=== PATIENT | male | born 1975 | race Caucasian/White ===

== ENCOUNTER 2019-01-08 18:21 | Emergency (ER) | payer OTHER ==
[~2019-01-08] VITALS: Ht 170.2 cm; Wt 145.2 kg
[~2019-01-08 18:21] MED LIST: ACET325 PO; AZIT500 PO; CETI10 PO; CODACE30 PO; CYCL10 PO; DIPH50 PO; FAMO20 PO; HYDACE10 PO; HYDACE5 PO; HYDPAM50 PO; IBUP200; IBUP200 PO; IBUP400 PO; IBUP800 PO; OXYACE5T PO; PRED10 PO; PRED20 PO
[2019-01-08] MEDS ORDERED: VENL150ER PO (19:24)
[2019-01-08 19:58] LABS: Source, Urine Clean Catch
[2019-01-08 20:03] LABS: BASOPHILS ABSOLUTE AUTO 0.03 K/mm3 (0.00-0.23); BASOPHILS PERCENT AUTO 0 % (0-2); EOSINOPHILS ABSOLUTE AUTO 0.16 K/mm3 (0.00-0.68); EOSINOPHILS PERCENT AUTO 2 % (0-6); Hematocrit 42.9 % (37.0-53.0); Hemoglobin 13.7 g/dL (13.5-17.5); IMMATURE GRAN ABSOLUTE AUTO 0.08 K/mm3 (0.00-0.10); IMMATURE GRAN PERCENT AUTO 1 % (0-1); LYMPHOCYTES ABSOLUTE AUTO 2.22 K/mm3 (0.84-5.20); LYMPHOCYTES PERCENT AUTO 31 % (21-46); MONOCYTES ABSOLUTE AUTO 0.58 K/mm3 (0.16-1.47); MONOCYTES PERCENT AUTO 8 % (4-13); Mean Corpuscular HGB 29.4 pg (26.0-34.0); Mean Corpuscular HGB Conc 31.9 g/dL (31.5-36.5); Mean Corpuscular Volume 92 fL (80-100); Mean Platelet Volume 11.3 fL (9.1-12.4); NEUTROPHILS ABSOLUTE AUTO 4.16 K/mm3 (1.96-9.15); NEUTROPHILS PERCENT AUTO 58 % (41-73); Platelet Count 267 K/mm3 (150-400); RDW Coefficient Variation 13.4 % (11.7-14.2); Red Blood Cell Count 4.66 M/mm3 (4.30-5.90); White Blood Cell Count 7.23 K/mm3 (4.00-11.30)
[2019-01-08 20:09] LABS: Appearance, Urine Hazy (Clear); Bilirubin, Urine Neg (Neg); Blood, Urine 5+ (Neg); Color, Urine Amber (P-Yellow); Glucose Qualitative, Urine Neg (Neg); Ketones, Urine 1+ (Neg); Leukocyte Esterase, Urine 1+ (Neg); Nitrite, Urine Neg (Neg); Protein, Urine 2+ (Neg); Specific Gravity, Urine 1.025 (1.003-1.022); Urobilinogen, Urine NORM (Normal)
[2019-01-08 20:23] LABS: Alanine Aminotransfer (ALT/SGP 51 U/L (12-78); Albumin, Blood 3.6 g/dL (3.4-5.0); Albumin/Globulin Ratio 0.8 (0.8-1.8); Alk Phos 120 U/L (50-136); Anion Gap 8 mmol/L (6-16); Aspartate Aminotrans (AST/SGOT 36 U/L (12-37); Bilirubin, Total 0.5 mg/dL (0.1-1.0); Blood Urea Nitrogen 9 mg/dL (8-24); Bun/Creatinine Ratio 9.1 (12.0-20.0); CO2, Blood 26 mmol/L (21-32); Calcium, Blood 8.9 mg/dL (8.5-10.1); Chloride, Blood 108 mmol/L (98-108); Creatinine, Blood 0.99 mg/dL (0.60-1.20); Globulin, Blood 4.3 g/dL (2.2-4.0); Glomerular Filtration Rate >60 (60-); Glucose, Blood 143 mg/dL (70-99); Potassium, Blood 3.7 mmol/L (3.5-5.5); Sodium, Blood 142 mmol/L (136-145); Total Protein, Blood 7.9 g/dL (6.4-8.2)
[2019-01-08 20:25] LABS: Squamous Epithelial Cells Rare /hpf (Few); White Blood Cells, Urine 0-2 /hpf (0-5)
[2019-01-08 20:26] LABS: Bacteria Rare /hpf; Mucus Light (0-Heavy)
[2019-01-08] MEDS ORDERED: ONDA4ODT MM (23:20)
[2019-01-08] MEDS ORDERED: Norco 5-325 Ta1 EACH PO (23:20)
== END 2019-01-08 23:46 | disposition home or self-care (01) ==
LOC: ER 18:21
PROVIDERS: Physician Assistant
DX: N13.2 Hydronephrosis with renal and ureteral calculous obstruction (principal); Z79.899 Other long term (current) drug therapy
CPT/HCPCS: 36415; 76770; 80053; 81001; 85025; 87086; 96374; 96375; 99284-25; J1885; J2405

== ENCOUNTER 2020-01-16 19:25 | Emergency (ER) | payer OTHER ==
[~2020-01-16] VITALS: Ht 177.8 cm; Wt 140.6 kg
[~2020-01-16 19:25] MED LIST changes: +Norco 5-325 Ta1 EACH PO; +ONDA4ODT MM; +VENL150ER PO
== END 2020-01-16 20:16 | disposition home or self-care (01) ==
LOC: ER 19:25
DX: M67.823 Other specified disorders of tendon, right elbow (principal); F32.9 Major depressive disorder, single episode, unspecified
CPT/HCPCS: 99283

== ENCOUNTER 2020-01-30 09:05 | Day surgery (SDC) | payer OTHER ==
[~2020-01-30] VITALS: Ht 175.3 cm; Wt 134.8 kg
[2020-01-30] MEDS ORDERED: PARO25 PO (09:25)
[2020-01-30] MEDS ORDERED: Flurbiprofen100 MG PO (09:26)
== END 2020-01-30 13:14 | disposition home or self-care (01) ==
LOC: ORSCMMR 09:05
PROVIDERS: Orthopaedic Surgery
PROC: 0LM30ZZ Reattachment of Right Upper Arm Tendon, Open Approach (ICD-10-PCS; principal; 2020-01-30 10:45)
DX: S46.201A Unspecified injury of muscle, fascia and tendon of other parts of biceps, right arm, initial encounter (principal); F17.210 Nicotine dependence, cigarettes, uncomplicated; G47.33 Obstructive sleep apnea (adult) (pediatric); F32.9 Major depressive disorder, single episode, unspecified; E66.01 Morbid (severe) obesity due to excess calories; Z68.41 Body mass index [BMI] 40.0-44.9, adult; Z79.899 Other long term (current) drug therapy
CPT/HCPCS: A9270-GY; C1713; J0690; J1100; J2250; J2370; J2405; J2704; J3010; J7120

== ENCOUNTER → 2024-11-26 | Outpatient (CLI) | payer OTHER ==
[~2024-11-26] MED LIST changes: +Flurbiprofen100 MG PO; +PARO25 PO
[2024-11-26 15:09] LABS: Albumin, Blood 4.1 g/dL (3.4-5.0); Albumin/Globulin Ratio 1.1 (0.8-1.8); Bilirubin, Total 0.9 mg/dL (0.1-1.0); Bun/Creatinine Ratio 10.1 (12.0-20.0); Calcium, Blood 9.8 mg/dL (8.5-10.1); Creatinine, Blood 0.89 mg/dL (0.60-1.20); Globulin, Blood 3.6 g/dL (2.2-4.0); Potassium, Blood 3.9 mmol/L (3.5-5.5); Total Protein, Blood 7.7 g/dL (6.4-8.2)
[2024-11-26 15:16] LABS: BASOPHILS ABSOLUTE AUTO 0.05 K/mm3 (0.00-0.23); BASOPHILS PERCENT AUTO 1 % (0-2); EOSINOPHILS PERCENT AUTO 3 % (0-6); Hematocrit 51.5 % (37.0-53.0); Hemoglobin 18.5 g/dL (13.5-17.5); IMMATURE GRAN ABSOLUTE AUTO 0.03 K/mm3 (0.00-0.10); IMMATURE GRAN PERCENT AUTO 0 % (0-1); LYMPHOCYTES ABSOLUTE AUTO 2.43 K/mm3 (0.84-5.20); LYMPHOCYTES PERCENT AUTO 32 % (21-46); MONOCYTES ABSOLUTE AUTO 0.55 K/mm3 (0.16-1.47); MONOCYTES PERCENT AUTO 7 % (4-13); Mean Corpuscular HGB 31.1 pg (26.0-34.0); Mean Corpuscular HGB Conc 35.9 g/dL (31.5-36.5); Mean Corpuscular Volume 87 fL (80-100); Mean Platelet Volume 12.5 fL (9.1-12.4); NEUTROPHILS ABSOLUTE AUTO 4.34 K/mm3 (1.96-9.15); NEUTROPHILS PERCENT AUTO 57 % (41-73); Platelet Count 148 K/mm3 (150-400); RDW Coefficient Variation 12.5 % (11.7-14.2); RDW Standard Deviation 39.8 fL (35.1-46.3); Red Blood Cell Count 5.95 M/mm3 (4.30-5.90)
== END | disposition home or self-care (01) ==
LOC: LAB SHORT 14:47
PROVIDERS: Physician Assistant
DX: R07.9 Chest pain, unspecified (principal)
CPT/HCPCS: 80053; 83690; 84484; 85025; 85379